=== PATIENT | female | born 1975 | race Caucasian/White ===

== ENCOUNTER 2018-04-29 17:26 | Emergency (ER) | payer OTHER ==
[2018-04-29 17:46] VITALS: BP 145/83; PULSE 85; RESP 18; TEMP 99.6; O2SAT 99
--- NOTE | 2018-04-29 19:08 | ED PDOC ---
Upper Extremity Pain/Injury Time Seen by Provider: 04/29/18 17:42 Chief Complaint (Nursing): Upper Extremity Problem/Injury Chief Complaint (Provider): Right arm injury after fall History Per: Patient History/Exam Limitations: no limitations Onset/Duration Of Symptoms: Hrs Current Symptoms Are (Timing): Still Present Additional Complaint(s): 43 yo female presents with right upper arm pain after a fall. Pt states she was standing when a dog ran past her left side knocking her onto her right side. Pt reports pain from shoulder to elbow. Pt takes tramadol intermittently for lowe back pain and took it at 10am for the pain but it did not help. No numbness/ tingling. Past Medical History Reviewed: Historical Data, Nursing Documentation, Vital Signs Vital Signs: Last Vital Signs Temp 99.6 F 04/29/18 17:43 Pulse 85 04/29/18 17:43 Resp 18 04/29/18 17:43 BP 145/83 04/29/18 17:43 Pulse Ox 99 04/29/18 17:43 - Medical History PMH: Hypothyroidism - Surgical History Surgical History: No Surg Hx - Family History Family History: States: No Known Family Hx - Living Arrangements Living Arrangements: With Family - Home Medications Home Medications: Ambulatory Orders Medication Instructions Recorded Ibuprofen [Motrin Tab] 800 mg PO Q6H PRN #20 tab 04/29/18 - Allergies Allergies/Adverse Reactions: Allergies Allergy/AdvReac Type Severity Reaction Status Date / Time No Known Allergies Allergy Verified 04/29/18 17:45 Review of Systems ROS Statement: Except As Marked, All Systems Reviewed And Found Negative Constitutional: Negative for: Fever, Chills Musculoskeletal: Positive for: Arm Pain Skin: Negative for: Bruising Physical Exam - Reviewed Nursing Documentation Reviewed: Yes Vital Signs Reviewed: Yes - Physical Exam Appears: Positive for: Well, Non-toxic, No Acute Distress Head Exam: Positive for: ATRAUMATIC, NORMAL INSPECTION, NORMOCEPHALIC Skin: Positive for: Normal Color (No ecchymosis, no erythema ), Warm Eye Exam: Positive for: Normal appearance Neck: Positive for: Normal Respiratory: Negative for: Accessory Muscle Use, Respiratory Distress Pulses-Radial (L): 2+ Pulses-Radial (R): 2+ Back: Positive for: Normal Inspection Extremity: Positive for: Other (Clavicle and scapula non-tender, tenderness of the distal humerus and humeral head; fire dispatcher strength 2+). Negative for: Normal ROM ( in right shoulder and elbow due to pain), Deformity, Swelling Neurologic/Psych: Positive for: Alert, Oriented, Gait - ECG O2 Sat by Pulse Oximetry: 99 Medical Decision Making Medical Decision Making: Shoulder and elbow xr without acute fracture or dislocation. F/u XR for continued pain. Disposition - Clinical Impression Clinical Impression: Arm injury - Patient ED Disposition Is Patient to be Admitted: No Counseled Patient/Family Regarding: Diagnosis, Need For Followup, Rx Given - Disposition Referrals: Tate Brand MD [Medical Doctor] - Disposition Time: 19:10 Condition: GOOD Prescriptions: Ibuprofen [Motrin Tab] 800 mg PO Q6H PRN #20 tab PRN Reason: Pain Instructions: Getting Up From a Fall
--- NOTE | 2018-04-30 09:06 | RAD ---
Date of service: 04/29/2018 PROCEDURE: Radiographs of the right elbow. HISTORY: fall onto right arm, 10 am COMPARISON: No prior. FINDINGS: BONES: No acute fracture. JOINTS: Unremarkable. SOFT TISSUES: Normal. JOINT EFFUSION: None. OTHER FINDINGS: None. IMPRESSION: No demonstrated fracture or dislocation.
--- NOTE | 2018-04-30 09:07 | RAD ---
Date of service: 04/29/2018 PROCEDURE: Radiographs of the Right Shoulder HISTORY: fall onto right arm, 10 am COMPARISON: No prior. FINDINGS: BONES: No acute fracture. JOINTS: Unremarkable. SOFT TISSUES: Normal. OTHER FINDINGS: None. IMPRESSION: No demonstrated fracture or dislocation.
== END 2018-04-29 19:15 | disposition home or self-care (01) ==
LOC: H.ER 17:26
DX: S49.91XA Unspecified injury of right shoulder and upper arm, initial encounter (principal); W54.1XXA Struck by dog, initial encounter